=== PATIENT | male | born 1980 ===

== ENCOUNTER 2022-06-22 15:51 | Emergency (ER) | payer SELFPAY ==
[2022-06-22] MEDS ORDERED: oxyCODONE /ACETAMINOPHEN 5-325MG TAB PO ONE (16:31)
[2022-06-22] MEDS ORDERED: KETOROLAC 10 MG TAB PO ONE (16:31)
[2022-06-22] MEDS ORDERED: TETANUS,DIPH,PERTUSS(ACELL) VACCINE 0.5 ML SYRINGE IM ONE (16:31)
--- NOTE | 2022-06-22 17:22 | XRay Report ---
RIGHT HAND 3 VIEW(S) INDICATION / CLINICAL INFORMATION: injury/laceration COMPARISON: None available. FINDINGS: BONES / JOINT(S): No acute fracture or subluxation. No significant arthritis. SOFT TISSUES: Soft tissue gas along the nail beds of the little and ring fingers. No radiodense forei gn bodies. ADDITIONAL FINDINGS: None. IMPRESSION: 1. Soft tissue gas along the nailbeds of the right little and ring fingers may be due to laceration. No radiodense foreign bodies. Signer Name: Al Tran MD Signed: 06/22/2022 5:17 PM Workstation Name: [id number]
[2022-06-22] MEDS ORDERED: LIDOCAINE-MPF (1%) 10 MG/1 ML VIAL 5 ML INFILTRATI ONE (17:32)
[2022-06-22] MEDS ORDERED: HYDROcodone/ACETAMINOPHEN 5-325 MG TAB PO ONE (18:34)
--- NOTE | 2022-06-22 18:42 | Emergency Department Report ---
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 States 7/10 pain exacerbated by movement. Bleeding was controlled by direct pressure self applied on scene. Last tetanus is unknown range of motion remains intact. There is no gross deformity. Patient denies other injury Severity scale (0 -10): 10 - Related Data Previous Rx's Medication Instructions Recorded Last Taken Type HYDROcodone/APAP 5-325 [[place] 1 each PO Q6HR PRN #12 tablet 06/22/22 Unknown Rx 5-325 mg TAB] cephALEXin [Keflex] 500 mg PO Q8HR 7 Days #21 cap 06/22/22 Unknown Rx Allergies Allergy/AdvReac Type Severity Reaction Status Date / Time No Known Allergies Allergy Verified 06/22/22 16:04 ED Review of Systems ROS: Stated complaint: LACERATION TO FINGER Other details as noted in HPI Constitutional: denies: chills, fever Eyes: denies: eye pain, eye discharge, vision change ENT: denies: ear pain, throat pain Respiratory: denies: cough, shortness of breath, wheezing Cardiovascular: denies: chest pain, palpitations Endocrine: no symptoms reported Gastrointestinal: denies: abdominal pain, nausea, diarrhea Genitourinary: denies: urgency, dysuria Musculoskeletal: other (Partial nail avulsions right index and little finger) Skin: denies: rash, lesions Neurological: as per HPI Psychiatric: denies: anxiety, depression Hematological/Lymphatic: denies: easy bleeding, easy bruising ED Past Medical Hx - Medications Home Medications: Home Medications Medication Instructions Recorded Confirmed Last Taken Type HYDROcodone/APAP 5-325 [[place] 1 each PO Q6HR PRN #12 tablet 06/22/22 Unknown Rx 5-325 mg TAB] cephALEXin [Keflex] 500 mg PO Q8HR 7 Days #21 cap 06/22/22 Unknown Rx ED Physical Exam - General Limitations: No Limitations General appearance: alert, in no apparent distress - Head Head exam: Present: normocephalic, normal inspection - Eye Eye exam: Present: EOMI Pupils: Present: normal accommodation - ENT ENT exam: Present: mucous membranes moist - Neck Neck exam: Present: normal inspection, full ROM. Absent: tenderness, lymphadenopathy - Respiratory Respiratory exam: Present: normal lung sounds bilaterally. Absent: respiratory distress, wheezes - Cardiovascular Cardiovascular Exam: Present: regular rate, normal rhythm, normal heart sounds. Absent: systolic murmur, diastolic murmur, rubs, gallop - GI/Abdominal GI/Abdominal exam: Present: soft, normal bowel sounds - Rectal Rectal exam: Present: deferred - Extremities Exam Extremities exam: Present: tenderness - Expanded Upper Extremity Exam Right Hand Wrist exam: Present: tenderness, swelling, laceration, nail avulsion (Nail avulsions to right ring and little finger with lacerations.), subungual hematoma Neuro motor exam: Present: wrist extension intact, thumb opposition intact, thumb IP flexion intact, thumb adduction intact, fingers 2-5 abduction intact Neurosensory exam: Present: radial nerve intact Vascular: Present: normal capillary refill - Back Exam Back exam: Present: normal inspection, full ROM. Absent: tenderness - Neurological Exam Neurological exam: Present: alert, oriented X3, CN II-XII intact, normal gait, reflexes normal. Absent: motor sensory deficit - Expanded Neurological Exam Expanded Patient oriented to: Present: person, place, time Speech: Present: fluid speech Motor strength exam: RUE: 5, LUE: 5, RLE: 5, LLE: 5 Best Eye Response (Mullen): (4) open spontaneously Best Motor Response (Pernell): (6) obeys commands Best Verbal Response (Mullen): (5) oriented Pernell Total: 15 - Psychiatric Psychiatric exam: Present: normal affect, normal mood - Skin Skin exam: Present: warm, dry, intact, normal color. Absent: rash ED Course Vital Signs 06/22/22 15:59 Temperature 97 F L Pulse Rate 89 Respiratory 18 Rate Blood Pressure 105/68 [Right] O2 Sat by Pulse 100 Oximetry - Laceration /Wound Repair Right Distal Finger Wound Location: upper extremity (Partial nail avulsions to right ring and little finger with laceration through the nailbed) Wound Length (cm): 1 Wound's Depth, Shape: superficial, irregular Wound Explored: clean Irrigated w/ Saline (ccs): 100 Betadine Prep?: Yes Anesthesia: 1% Lidocaine Volume Anesthetic (ccs): 3 Wound Debrided: minimal Wound Repaired With: sutures Suture Size/Type: 3:0, proline Number of Sutures: 6 Layer Closure?: No Sterile Dressing Applied?: Yes Progress: Right index finger and little finger partial nail avulsions. With lacerations site cleaned with Betadine solution, anesthesia with 1% lidocaine x3 cc anesthesia is achieved to ring and little finger. Site is cleaned with Betadine solution was irrigated with 100 cc sterile saline. Nail was removed intact nailbeds probed with scissors and sterile Q-tip. Nails trimmed in usual anchors for nailbed laceration suture repair. All bleeding is controlled sterile dressings are applied patient given wound care instructions including follow-up with primary in 2 days for wound check symptoms of infection. I return in 7 to 10 days for suture removal. Patient will follow-up with hand surgery will confirm appointment on Friday. Patient and family verbalized agreement and understanding of discharge plan. Patient DC'd home in stable condition at this time. ED Medical Decision Making - Radiology Data Radiology results: report reviewed, image reviewed RIGHT HAND 3 VIEW(S) INDICATION / CLINICAL INFORMATION: injury/laceration COMPARISON: None available. FINDINGS: BONES / JOINT(S): No acute fracture or subluxation. No significant arthritis. SOFT TISSUES: Soft tissue gas along the nail beds of the little and ring fingers. No radiodense foreign bodies. ADDITIONAL FINDINGS: None. IMPRESSION: 1. Soft tissue gas along the nailbeds of the right little and ring fingers may be due to laceration. No radiodense foreign bodies. Signer Name: Al Tran MD Signed: 06/22/2022 5:17 PM Workstation Name: [id number] Transcribed By: TRACE Dictated By: Al Tran MD Electronically Authenticated By: Al Tran MD Signed Date/Time: 06/22/221716 DD/ 15 TD/TT: - Medical Decision Making Partial nail avulsions to right ring and little finger nailbed with lacerations. See procedure note. Sterile dressings intact all bleeding controlled patient tolerated procedure with minimal distress. Patient given tetanus shot will be DC'd to home with antibiotics and pain medicine. Patient will follow-up with hand surgery in 2 days. Patient will follow primary care doctor given symptoms of obstruction and will follow-up with primary care doctor in 2 days for wound check in 7 to 10 days for suture removal unless advised differently by hand surgery. X-rays noted no fracture and no foreign body. Critical care attestation.: If time is entered above; I have spent that time in minutes in the direct care of this critically ill patient, excluding procedure time. ED Disposition Clinical Impression: Finger laceration Qualifiers: Encounter type: initial encounter Finger: ring finger Damage to nail status: with damage Foreign body presence: without foreign body Laterality: right Qualified Code(s): S61.314A - Laceration without foreign body of right ring finger with damage to nail, initial encounter Nail avulsion, finger Qualifiers: Encounter type: initial encounter Qualified Code(s): S61.309A - Unspecified open wound of unspecified finger with damage to nail, initial encounter Disposition: HOME / SELF CARE / HOMELESS Is pt being admited?: No Does the pt Need Aspirin: No Condition: Stable Instructions: Fingernail or Toenail Removal, Adult, Care After, Sutures, [place], or Adhesive Wound Closure Additional Instructions: Take medications as prescribed. Follow-up with hand surgery call on Friday to confirm appointment. Follow-up with your primary care doctor in 2 to 3 days. Return to the emergency should symptoms worsen or symptoms of infection develop. Prescriptions: cephALEXin [Keflex] 500 mg PO Q8HR 7 Days #21 cap HYDROcodone/APAP 5-325 [[place] 5-325 mg TAB] 1 each PO Q6HR PRN #12 tablet PRN Reason: Pain Referrals: ELIZABETH FRANCO MD [Referring] - 2-3 Days Forms: Work/School Release Form(ED) Time of Disposition: 19:04
[2022-06-22 20:10] VITALS: BP 126/78
== END 2022-06-22 20:10 | disposition home or self-care (01) ==
LOC: ED 15:51
DX: S61.214A Laceration without foreign body of right ring finger without damage to nail, initial encounter (principal); S61.216A Laceration without foreign body of right little finger without damage to nail, initial encounter; X58.XXXA Exposure to other specified factors, initial encounter; Y93.89 Activity, other specified; Y92.89 Other specified places as the place of occurrence of the external cause; Y99.8 Other external cause status
CPT/HCPCS: 90471; 90715; 99283

== ENCOUNTER 2022-07-06 13:01 | Emergency (ER) | payer SELFPAY ==
[2022-07-06 14:11] VITALS: BP 154/97
--- NOTE | 2022-07-06 14:35 | Emergency Department Report ---
Suture/Staple Removal - HPI Chief Complaint: Laceration/Recheck/Suture Stated Complaint: SUTURE REMOVAL Time Seen by Provider: 07/06/22 14:18 When Sutures or [place] Placed: 11-14 Days Ago Wound Location: Right fingers ED Review of Systems ROS: Stated complaint: SUTURE REMOVAL Other details as noted in HPI Comment: All other systems reviewed and negative Constitutional: denies: fever ED Past Medical Hx - Past Medical History Previous Medical History?: No - Surgical History Past Surgical History?: No - Social History Smoking Status: Never Smoker Substance Use Type: None - Medications Home Medications: Home Medications Medication Instructions Recorded Confirmed Last Taken Type HYDROcodone/APAP 5-325 [[place] 1 each PO Q6HR PRN #12 tablet 06/22/22 Unknown Rx 5-325 mg TAB] cephALEXin [Keflex] 500 mg PO Q8HR 7 Days #21 cap 06/22/22 Unknown Rx Suture Removal Exam - Exam General: Vital signs noted. No distress. Alert and acting appropriately. Wound: No Pathologic Erythema, No Tenderness, No Drainage, No Pus, No Wound Dehiscence Other Systems: All other systems reviewed and are unremarkable. ED Course Vital Signs 07/06/22 13:26 Temperature 98.7 F Pulse Rate 78 Respiratory 18 Rate Blood Pressure 154/97 [Left] O2 Sat by Pulse 99 Oximetry - Procedure Description Procedures done: Suture removal: 6 sutures removed from to right fingers. No erythema edema or drainage noted. No tenderness noted and patient tolerated well. ED Recheck MDM - Differential Diagnosis Suture/Staple Removal - Medical Decision Making Sutures removed per my procedure note. Patient tolerated well. No acute distress noted, patient advised to follow-up with hand surgery as previously advised and return to the emergency department as needed. Critical care attestation.: If time is entered above; I have spent that time in minutes in the direct care of this critically ill patient, excluding procedure time. ED Disposition Clinical Impression: Visit for suture removal Disposition: 01 HOME / SELF CARE / HOMELESS Is pt being admited?: No Does the pt Need Aspirin: No Condition: Stable Instructions: Suture Removal, Care After Time of Disposition: 14:34
== END 2022-07-06 14:45 | disposition home or self-care (01) ==
LOC: ED 13:01
DX: S61.219D Laceration without foreign body of unspecified finger without damage to nail, subsequent encounter (principal); X58.XXXD Exposure to other specified factors, subsequent encounter
CPT/HCPCS: 99282